=== PATIENT | male | born 1950 | race Caucasian/White ===

== ENCOUNTER 2016-04-03 16:40 | Outpatient (CLI) | payer MEDICARE | END 2016-04-03 16:41 | disposition home or self-care (01) | DX: L60.3 Nail dystrophy (principal) ==

== ENCOUNTER 2018-10-24 11:30 | Emergency (ER) | payer MEDICARE ==
[2018-10-24] MEDS ORDERED: TETANUS/DIPHTHERIA/PERTUSSIS 0.5 ML SYRINGE IM ONE (13:13)
[2018-10-24] MEDS ORDERED: BACITRACIN OINT TOP STA (13:13)
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
[2018-10-24] MEDS ORDERED: BACITRACIN OINT TOP ONE ×2 (13:22→13:24)
[2018-10-24 13:28] VITALS: BP 130/79
== END 2018-10-24 13:35 | disposition home or self-care (01) ==
LOC: ED 11:30
DX: T25.622A Corrosion of second degree of left foot, initial encounter (principal); T25.621A Corrosion of second degree of right foot, initial encounter; T54.91XA Toxic effect of unspecified corrosive substance, accidental (unintentional), initial encounter; T32.0 Corrosions involving less than 10% of body surface; Y93.89 Activity, other specified; Z23 Encounter for immunization
CPT/HCPCS: 90471; 90715; 99282; 99284; A9270

== ENCOUNTER 2021-01-27 08:00 | Outpatient (CLI) | payer MEDICARE | END 2021-01-27 23:59 | disposition home or self-care (01) | LOC: LAB 08:00 | PROVIDERS: ATTEND Physician Assistant Medical | DX: R30.0 Dysuria (principal) | CPT/HCPCS: 87077; 87086; 87181 ==

== ENCOUNTER 2022-08-24 13:32 | Outpatient (CLI) | payer MEDICARE, OTHER | END 2022-08-24 23:59 | disposition short-term general hospital (02) | LOC: EMS 13:32 | DX: R55 Syncope and collapse (principal); R06.02 Shortness of breath; R06.81 Apnea, not elsewhere classified; R42 Dizziness and giddiness | CPT/HCPCS: A0425; A0429 ==

== ENCOUNTER 2022-12-04 10:44 | Outpatient (CLI) | payer MEDICARE | END 2022-12-04 23:59 | disposition critical access hospital (66) | LOC: EMS 10:44 | DX: S01.01XA Laceration without foreign body of scalp, initial encounter (principal); W01.190A Fall on same level from slipping, tripping and stumbling with subsequent striking against furniture, initial encounter; Y92.241 Library as the place of occurrence of the external cause | CPT/HCPCS: A0425; A0429 ==

== ENCOUNTER 2022-12-04 11:21 | Emergency (ER) | payer MEDICARE ==
[2022-12-04 11:40] VITALS: BP 130/80; O2SAT 94
[2022-12-04] MEDS ORDERED: LIDOCAINE 1%-EPI 1:100000 20 ML MDV SUBQ STA (11:46)
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
--- NOTE | 2022-12-04 13:50 | CT Report ---
PROCEDURE: HEAD WO INDICATIONS: head injury TECHNIQUE: Noncontrast 4.5 mm thick angled axial sections acquired from the foramen magnum to the vertex. For r adiation dose reduction, the following was used: automated exposure control, adjustment of mA and/or kV according to patient size. COMPARISON: None. FINDINGS: Image quality: Excellent. CSF spaces: Basal cisterns are patent. A posterior fossa arachnoid cyst is incidentally noted. Ventr icles are normal in size and shape. Brain: No midline shift. No intracranial masses or hemorrhage. Wright-white matter interface is norm al. Age-appropriate brain parenchymal volume loss and chronic small vessel ischemic change can be se en. Incidental note is made of a cavum of septum pellucidum. This is of likely no clinical consequen ce, when incidentally discovered in isolation. Skull and face: There is a repaired left posterior scalp laceration seen, with a skin staple line. N o underlying calvarial fracture is seen. Calvarium and visualized facial bones are intact, without hester spicious lesions. Sinuses: Visualized sinuses and mastoids are clear. IMPRESSION: Repaired left posterior scalp laceration, without an associated calvarial fracture. No intracranial hemorrhage is seen. No significant intracranial abnormality is seen. Additional findings: Posterior fossa arachnoid cyst Reviewed by: Abdon Padgett MD on 12/04/2022 12:49 PM [facility] Approved by: Abdon Padgett MD on 12/04/2022 12:49 PM [facility] Station ID: [id number]
== END 2022-12-04 14:13 | disposition home or self-care (01) ==
LOC: EDUNIT# → ED 11:21
DX: S01.01XA Laceration without foreign body of scalp, initial encounter (principal); S09.90XA Unspecified injury of head, initial encounter; W01.10XA Fall on same level from slipping, tripping and stumbling with subsequent striking against unspecified object, initial encounter; Y93.9 Activity, unspecified; Y92.241 Library as the place of occurrence of the external cause; Y99.0 Civilian activity done for income or pay
CPT/HCPCS: 12002; 99284

== ENCOUNTER 2022-12-10 08:00 | Outpatient (CLI) | payer MEDICARE ==
--- NOTE | 2022-12-10 12:54 | XRAY Report ---
PROCEDURE: Elbow 2 View LT INDICATIONS: CONTUSION OF LEFT ELBOW TECHNIQUE: 2 views of the elbow were acquired. COMPARISON: None. FINDINGS: Bones: No acute fractures or dislocations. No suspicious bony lesions. Soft tissues: No significant effusion. No suspicious soft tissue calcifications. Soft tissue edema is seen overlying the olecranon. IMPRESSION: 1.Soft tissue edema overlying the olecranon versus a small olecranon bursal effusion. 2.No acute osseous abnormality. If symptoms persist or there is continued clinical concern, further e valuation with MRI or CT may be helpful. Reviewed by: Philippe Lou MD on 12/10/2022 12:53 PM PDT Approved by: Philippe Lou MD on 12/10/2022 12:53 PM PDT Station ID: [id number]
== END 2022-12-10 23:59 | disposition home or self-care (01) ==
LOC: DI.S 08:00
PROVIDERS: ATTEND Physician Assistant
DX: S50.02XA Contusion of left elbow, initial encounter (principal)

== ENCOUNTER 2023-06-10 08:00 | Outpatient (CLI) | payer MEDICARE ==
--- NOTE | 2023-06-10 14:19 | XRAY Report ---
PROCEDURE: Chest 2V INDICATIONS: ACUTE BRONCHITIS TECHNIQUE: 2 views of the chest were acquired. COMPARISON: 11/07/2021 FINDINGS: Surgical changes and devices: None. Lungs and pleura: No dense consolidation or pleural effusion. Mediastinum: Cardiomediastinal contours are unchanged. The aorta is tortuous. Bones and chest wall: Degenerative changes. IMPRESSION: No acute airspace consolidation or pleural effusion. Reviewed by: Etienne Batista MD on 06/10/2023 2:18 PM PDT Approved by: Etienne Batista MD on 06/10/2023 2:18 PM PDT Station ID: [id number]
== END 2023-06-10 23:59 | disposition home or self-care (01) ==
LOC: DI.S 08:00
PROVIDERS: ATTEND Emergency Medicine
DX: J20.9 Acute bronchitis, unspecified (principal)